=== PATIENT | male | born 1985 | race Caucasian/White ===

== ENCOUNTER 2021-01-19 20:39 | Inpatient (IN) | payer OTHER ==
[~2021-01-19] VITALS: Ht 182.9 cm; Wt 91.2 kg
--- NOTE | ~2021-01-19 | EMS ---
[address] [address] EMS Patient Care Report Name: ARRON COBURN Room #: REG Bell#: [id number] Admission: 01/19/21 Attend Phys: Discharge: Date of : 87 Report #: [id number] THIS REPORT FOR: //name// Report Transmitted: 01/19/2021 20:25 EMS Care Summary [place], [place]/[facility] Incident [id number] @ 01/19/2021 20:12 Incident Location [address], [place] [address] Patient ARRON COBURN Male, 35 Years 1985 Patient Address [address] [place] [address] Patient History Enlarged prostate, Patient Allergies No known allergies, Patient Medications Adderall, [place], Xanax, Chief Complaint anxious Disposition Transported No Lights/[place] Dispatch Reason Chest Pain (Non-Traumatic) Transported To [facility] Narrative 35 y/o male with chest pain Upon arrival the pt came running out of the front door of the residence. He was at the ambulance before we got completely stopped. He appears extremely [address] [address] EMS Patient Care Report Name: ARRON COBURN Room #: REG JOHNNA Luu#: [id number] Admission: 01/19/21 Attend Phys: Discharge: Date of : 87 Report #: [id number] anxious and manic. The pt is awake, conscious A&O x 4 with a GCS of 15. He has a patent airway, breathing is normal, and has a strong fast reg radial pulse. the pt states he was lying on the couch after smoking some week when he began to feel anxious and felt like his body was going to explode. The pt admits to smoking weed tonight before lying down on the couch. The pt states that he has not used any cocaine or meth, no acid, mushrooms or anything that would make his BP or heart race. Pt has no cardiac Hx. The pt got into the ambulance on his own and layed down on the cot in a position of comfort, was secured to the cot, and VS established. a 12 lead ECG was obtained and the pt showed boarder line SVT. As the pt calmed down his heart rate slowed a little to ST in the 130's. A 12 lead was done and did not show an obvious STEMI. A 18 g lock was placed in his LAC. The pt was transported to [place] per the pt request with out incident or changes to the pt during transport. The pt was coached to slow his breathing and to relax during transport. EMS took the pt to room 3 and gave report and returned to service. Initial Vitals @20:29P: 142,CO: 0,SpO2: 100, @20:18P: 149,CO: 3, @20:29P: 139, @20:23P: 146,BP: 144/94,CO: 2, @20:30P: 133,SpO2: 99, @20:17P: 151,R: 18,BP: 164/105,Pain: 0/10,GCS: 15,SpO2: 100,Revised Trauma: 12,WA Suspected: false Assessments @20:24MENTAL:Place Oriented,Time Oriented,Person Oriented,Event Oriented,SKIN:HEENT:Head/Face: No Abnormalities,Neck/Airway: No Abnormalities,LUNG SOUNDS:General: No Abnormalities,ABDOMEN:General: No Abnormalities,PELVIS//GI:No Abnormalities,EXTREMITIES:Capillary Refill: Right Upper: < 2 Sec,Capillary Refill: Left Upper: < 2 Sec,Left Arm: No Abnormalities,Right Arm: No Abnormalities,Left Leg: No Abnormalities,Right Leg: No Abnormalities,PULSE:Radial: 2+ Normal,NEURO:No Abnormalities, Impression Anxiety reaction/Emotional upset Procedures @20:17 ALS Assessment Response: ImprovedSucceeded @20:29 12-Lead ECG Response: UnchangedSucceeded @20:18 12-Lead ECG Response: UnchangedSucceeded @20:30 IV Therapy - Saline Lock 7cc (18 ga) Site: Antecubital-Left Response: UnchangedSucceeded Timeline [address] [address] EMS Patient Care Report Name: ARRON COBURN Room #: REG JOHNNA Luu#: [id number] Admission: 01/19/21 Attend Phys: Discharge: Date of : 87 Report #: [id number] 20:10,Call Received 20:10,Dispatch Notified 20:12,Dispatched 20:12,En Route 20:16,On Scene 20:17,At Patient 20:17,ALS Assessment,Response: ImprovedSucceeded, 20:17,BP: 164/105 M,PULSE: 151,RR: 18 R,SPO2: 100 Ox,ETCO2: ,BG: ,PAIN: 0,GCS: 15, 20:18,12-Lead ECG,Response: UnchangedSucceeded, 20:18,BP: / M,PULSE: 149,RR: R,SPO2: Ox,ETCO2: ,BG: ,PAIN: ,GCS: , 20:22,Depart Scene 20:23,BP: 144/94 M,PULSE: 146,RR: R,SPO2: Ox,ETCO2: ,BG: ,PAIN: ,GCS: , 20:29,12-Lead ECG,Response: UnchangedSucceeded, 20:29,BP: / M,PULSE: 142,RR: R,SPO2: 100 Ox,ETCO2: ,BG: ,PAIN: ,GCS: , 20:29,BP: / M,PULSE: 139,RR: R,SPO2: Ox,ETCO2: ,BG: ,PAIN: ,GCS: , 20:30,IV Therapy - Saline Lock 7cc 18 ga Site: Antecubital-Left,Response: UnchangedSucceeded, 20:30,BP: / M,PULSE: 133,RR: R,SPO2: 99 Ox,ETCO2: ,BG: ,PAIN: ,GCS: , 20:34,At Destination 20:58,Call Closed Disclaimer v1.1 Copyright 2020 [employer] This EMS Care Summary contains data elements from the applicable legal record (which may be displayed differently). It is designed to provide pertinent information for the following purposes: continuity of care, clinical quality, and state data reporting. The complete legal record is available to ED staff and administrators of the receiving hospital in [employer]'s Patient Tracker. All data is provided "as is."
[2021-01-19 21:03] VITALS: BP 207/104
[2021-01-19 21:09] LABS: ABSOLUTE NEUTROPHILS 6.3 thou/uL (1.4-8.2); BASOPHILS 0.8 % (0.0-2.0); EOSINOPHILS 0.7 % (0.0-3.0); HEMATOCRIT 48.1 % (42.0-52.0); HEMOGLOBIN 16.5 gm/dL (14.0-18.0); LYMPHOCYTES 18.8 % (24.0-44.0); MCHC 34.4 g/dL (28.0-37.0); MCV 87.4 fL (80.0-100.0); MONOCYTES 8.3 % (1.0-8.0); PLATELET COUNT 288 thou/uL (150-400); POLYS 71.4 % (36.0-66.0); RDW 12.9 % (10.5-14.5); WBC 8.8 thou/uL (4.0-11.0)
[2021-01-19 22:07] LABS: ANION GAP 14 mmol/L (7-16); BUN 19 mg/dL (7-18); CALCIUM 9.3 mg/dL (8.5-10.1); CHLORIDE 103 mmol/L (98-107); CO2 23 mmol/L (21-32); CREATININE 1.6 mg/dL (0.7-1.3); GLUCOSE 118 mg/dL (74-106); POTASSIUM 3.5 mmol/L (3.5-5.1); SODIUM 140 mmol/L (136-145)
[2021-01-19 22:16] LABS: ALBUMIN 4.2 g/dL (3.4-5.0); SGOT 27 U/L (15-37); SGPT 53 U/L (30-65); TOTAL BILIRUBIN 0.6 mg/dL (0.2-1.0); TOTAL PROTEIN 7.3 g/dL (6.4-8.2)
[2021-01-19 22:37] LABS: SALICYLATE < 2.8 mg/dL (2.8-20.0)
[2021-01-20] MEDS ORDERED: SEYSARA150 MG PO (01:21)
[2021-01-20] MEDS ORDERED: BUPROPION XL300 MG PO (01:21)
[2021-01-20] MEDS ORDERED: VESICARE10 M1 PO (01:21)
[2021-01-20] MEDS ORDERED: FLOMAX0.4 MG PO (01:22)
[2021-01-20] MEDS ORDERED: BUSPIRONE HCL15 MG PO (01:22)
[2021-01-20] MEDS ORDERED: ESKALITH300 MG PO ×2 (01:24)
[2021-01-20] MEDS ORDERED: ADDERALL 20 MG20 MG PO (01:26)
[2021-01-20] MEDS ORDERED: ADDERALL 10 MG10 MG PO (01:27)
[2021-01-20 05:55] LABS: CALCIUM 8.2 mg/dL (8.5-10.1); CREATININE 1.2 mg/dL (0.7-1.3); POTASSIUM 3.9 mmol/L (3.5-5.1)
[2021-01-20 07:03] VITALS: BP 207/104
--- NOTE | 2021-01-20 07:24 | EKG ---
[address] [address] ELECTROCARDIOGRAM REPORT Name: ARRON COBURN Room #: 170-3 ADM IN M.R.#: [id number] Admission: 01/20/21 Attend Phys: Nirmal Hill MD Discharge: Date of : 87 Report #: [id number] [facility] ED Test Date: 2021-01-19 Test Time: 20:44:25 Pat Name: ARRON COBURN Department: Room: 170 Gender: M Health Services Information Specialist: jayme : 1985 Requested By: Yuriy Luciano Order Number: [id number] MD: Ventura Harrison Measurements Intervals [place] Rate: 119 P: 69 [place]: 176 QRS: 65 QRSD: 92 T: 38 QT: 316 QTc: 445 Interpretive Statements Sinus tachycardia No previous ECG available for comparison Electronically Signed On 01-20-2021 7:24:21 CDT by Ventura Harrison [email or web address] <ELECTRONICALLY SIGNED> By: Ventura Harrison MD, [facility] 01/20/21 0724 Ventura Harrison MD, FACC /EPI
[2021-01-20 08:49] VITALS: BP 135/85
[2021-01-20 09:06] VITALS: BP 156/109
[2021-01-20 11:06] VITALS: BP 144/106
--- NOTE | 2021-01-20 14:33 | 2DMMODE ---
[facility] [place] [address] 2 D/M-MODE ECHOCARDIOGRAM Name: ARRON COBURN Room #: 442-P ADM IN M.R.#: [id number] Admission: 01/20/21 Attend Phys: Nirmal Hill MD Discharge: Date of : 87 Report #: [id number] THIS REPORT FOR: cc: FAM - Family physician unknown FAM - Family physician unknown Ventura Harrison MD [facility] ~ APPROVED REPORT Study performed: 01/20/2021 13:32:08 EXAM: Comprehensive 2D, Doppler, and color-flow Echocardiogram Patient Location: Bedside Room #: 442 Status: routine BSA: 2.14 HR: 68 bpm BP: 144/106 mmHg Rhythm: NSR Other Information Study Quality: Good Indications Chest Pain Hypertension/HDD 2D Dimensions RVDd: 35.68 mm IVSd: 8.44 (7-11mm) LVOT Diam: 21.32 (18-24mm) LVDd: 51.28 mm PWd: 9.15 (7-11mm) Ascending Ao: 28.17 (22-36mm) LVDs: 37.62 (25-40mm) Left Atrium: 36.42 (27-40mm) Aortic Root: 28.89 mm Volumes Left Atrial Volume (Systole) Single Plane 4CH: 46.32 mL Single Plane 2CH: 38.01 mL LA ESV Index: 23.00 mL/m2 Aortic Valve LVOT Max P.44 mmHg LVOT Max V: 0.93 m/s [facility] [address] [place] [address] 2 D/M-MODE ECHOCARDIOGRAM Name: ARRON COBURN Room #: 442[facility] IN M.R.#: [id number] Admission: 01/20/21 Attend Phys: Ronel Ríos Discharge: Date of : 87 Report #: [id number] Mitral Valve E/A Ratio: 1.1 MV Decel. Time: 172.69 ms MV E Max Aleksey.: 0.56 m/s MV A Aleksey.: 0.49 m/s MV PHT: 50.08 ms IVRT: 87.66 ms Pulmonary Valve PV Peak Aleksey.: 1.10 m/s PV Peak Gr.: 4.81 mmHg Pulmonary Vein P Vein S: 0.51 m/s P Vein A: 0.25 m/s P Vein D: 0.49 m/s P Vein A Dur.: 83.0 msec P Vein S/D Ratio: 1.04 Tricuspid Valve TR Peak Aleksey.: 2.16 m/s TR Peak Gr.: 18.71 mmHg PA Pressure: 24.00 mmHg Left Ventricle The left ventricle is normal size. There is normal LV segmental wall motion. There is normal left ventricular wall thickness. Left ventricular systolic function is normal. The left ventricular ejection fraction is within the normal range. LVEF is 55-60%. The left ventricular diastolic function is normal. Right Ventricle The right ventricle is normal size. The right ventricular systolic function is normal. Atria The left atrium size is normal. The right atrium size is normal. Aortic Valve The aortic valve is normal in structure. No aortic regurgitation is present. There is no aortic valvular stenosis. Mitral Valve The mitral valve is normal in structure. There is no mitral valve regurgitation noted. No evidence of mitral valve stenosis. Tricuspid Valve The tricuspid valve is normal in structure. Trace tricuspid [facility] [address] [place] [address] 2 D/M-MODE ECHOCARDIOGRAM Name: ARRON COBURN Room #: 442-P ADM IN M.R.#: [id number] Admission: 01/20/21 Attend Phys: Ronel Ríos Discharge: Date of : 87 Report #: [id number] regurgitation. No pulmonary hypertension. Pulmonic Valve The pulmonary valve is normal in structure. There is no pulmonic valvular regurgitation. Great Vessels The aortic root is normal in size. IVC is normal in size and collapses >50% with inspiration. Pericardium There is no pericardial effusion. <Conclusion> The left ventricle is normal size. There is normal left ventricular wall thickness. LVEF is 55-60%. Grade 1 diastolic dysfunction The right ventricular systolic function is normal. Normal aortic/mitral valve structure and function Trace tricuspid regurgitation. PA pressure estimated 24 mmHg No pericardial effusion Normal aortic root size <ELECTRONICALLY SIGNED> By: Ventura Harrison MD, FACC 01/20/211432 32 32 Ventura Harrison MD, FACC /INF
--- NOTE | 2021-01-20 15:28 | NUR ---
TODAY THIS PT HAS BEEN TOLERATING HIS FLUIDS WELL MEDICATIONS WELL. HE HAS BEEN STARTED ON B/P MEDICATIONS FOR HIS HIGH B/P. HE HAS HAS OTHERWISE BEEN IN HIS ROOM AWAITING FOR THE NEXT PLAN.
[2021-01-20 19:02] VITALS: BP 141/97
[2021-01-20 19:44] VITALS: BP 129/93
--- NOTE | 2021-01-21 03:09 | NUR ---
PT WAS OBSERVED LYING ON HIS BED WATCHING TV AT SHIFT CHANGE.PT DENIED PAIN SO FAR.FAMILY IN THE ROOM TO VISIT AFTER SHIFT CHANGE.PT UP ADLIB IN THE ROOM WITH A STEADY GAIT.PT CONT ON IVF.PT ABLE TO MAKE HIS NEEDS KNOWN.CALL LIGHT WITHIN REACH.
[2021-01-21 04:15] VITALS: BP 116/82
[2021-01-21] MEDS ORDERED: METOPROLOL TART25 MG PO (07:46)
[2021-01-21 08:01] VITALS: BP 138/99
[2021-01-21 08:47] VITALS: BP 138/99
== END 2021-01-21 09:18 | disposition home or self-care (01) | DRG 918 ==
LOC: ER 20:39 → EROBS 01-20 00:51 → 4S 01-20 08:46
PROVIDERS: Emergency Medicine; Nurse Practitioner Family; ADMIT Hospitalist; ATTEND Hospitalist
DX: T56.891A Toxic effect of other metals, accidental (unintentional), initial encounter (principal); N17.9 Acute kidney failure, unspecified; E87.1 Hypo-osmolality and hyponatremia; F41.9 Anxiety disorder, unspecified; R00.0 Tachycardia, unspecified; N40.0 Benign prostatic hyperplasia without lower urinary tract symptoms; Z20.822 Contact with and (suspected) exposure to COVID-19; F32.9 Major depressive disorder, single episode, unspecified; F12.90 Cannabis use, unspecified, uncomplicated; F90.9 Attention-deficit hyperactivity disorder, unspecified type; Y92.89 Other specified places as the place of occurrence of the external cause
CPT/HCPCS: 10100